=== PATIENT | male | born 1950 | race Caucasian/White ===

== ENCOUNTER 2019-01-27 14:22 | Emergency (ER) | payer MEDICARE, OTHER ==
[~2019-01-27] VITALS: Ht 180.3 cm; Wt 120.0 kg
[2019-01-27 14:25] VITALS: Ht 180.3 cm; Wt 120.0 kg
[2019-01-27] MEDS ORDERED: IBUPROFEN 200 MG TAB PO ONE (15:00)
[2019-01-27] MEDS ORDERED: HYDR-4011 PO (15:55)
--- NOTE | 2019-01-27 15:59 | ERD ---
ER Documentation Chief Complaint Chief Complaint RIGHT ANKLE TWIST, DENIES DIZZINESS, JUST A CLUMSY MOMENT HPI 68-year-old male presents with right ankle pain and swelling after twisting it missed stepping 2 days ago. He has restricted range of motion due to pain but no weakness or deficits. He has abrasions on the anterior tillman. Denies head injury, neck pain, additional injuries. ROS All systems reviewed and are negative except as per history of present illness. Medications Home Meds Active Scripts Hydrocodone/Acetaminophen (Forsyth 5-325 Tablet) 1 Each Tablet, 1 TAB PO Q6H PRN for PAIN, #12 TAB Prov:DAHLIA MERCADO MD 01/27/19 Physical Exam Vitals Vital Signs Date Temp Pulse Resp B/P (MAP) Pulse Ox O2 O2 Flow FiO2 Time Delivery Rate 01/27/19 98.0 90 18 148/85 97 14:25 (106) Physical Exam Const: No acute distress Head: Atraumatic Eyes: Normal Conjunctiva ENT: Normal External Ears, Nose and Mouth. Neck: Full range of motion. No meningismus. Resp: Clear to auscultation bilaterally Cardio: Regular rate and rhythm, no murmurs Abd: Soft, non tender, non distended. Normal bowel sounds Skin: No petechiae or rashes Back: No midline or flank tenderness Ext: No cyanosis, or edema Neur: Awake and alert Psych: Normal Mood and Affect Results 24 hrs Current Medications Medications Dose Sig/Alisson Start Time Status Last (Trade) Ordered Route PRN Stop Time Admin Dose Reason Admin Ibuprofen 400 mg ONCE ONCE 01/27/19 DC 01/27/19 (Motrin) PO 15:00 01/27/19 15:52 15:01 Procedures/MDM ROCEDURE: XR Ankle. CLINICAL INDICATION: pain injury TECHNIQUE: AP, oblique and lateral views of the right ankle are available for review COMPARISON: None available FINDINGS: There is an oblique fracture of the distal fibula extending superiorly from the level of the joint line. There is widening of the lateral and medial clear space on the ankle mortise view. A tiny avulsion fragment is also identified inferior to the medial malleolus. There is also posterior malleolar fracture. No joint subluxation identified. There is soft tissue swelling overlying the lateral malleolus and medial malleolus extending anteriorly. There is mild joint effusion. No radiopaque foreign body is identified. IMPRESSION: Acute oblique fracture of the distal fibula extending above the joint line, widening of the lateral and medial clear spaces, indicative of syndesmotic ligament and deltoid ligament injuries, and posterior malleolar fracture. Tiny avulsion fragment inferior to the medial malleolus. Fracture pattern combination is most consistent with a Silveira type B3. These findings were discussed with emergency department Dahlia Samaniego at 01/27/2019 3:42:54 PM. RPTAT: EE Physician Pawan Date Time Electronically viewed and signed by Physician Pawan on 01/27/2019 15:44 BP/ CC: DAHLIA MERCADO MD Patient was given ibuprofen for pain. Patient was placed in a right lower extremity walker boot and was neurovascular intact to the boot. Immobilization was spent deferred given patient likely fall risk. He is advised to try to maintain nonweightbearing status he was given crutches with crutch training. Patient was given a short course of [place] with recommendations for orthopedic follow-up to evaluate ligaments and white mortise seen on x-ray. He has no signs to suggest septic arthritis, ischemia, deficits. He was advised he may need authorization from primary doctor from orthopedist visit was given referrals nonetheless. The patient was stable with no new complaints during the ER course. Clinically, there is no current evidence to suggest meningitis, sepsis, acute abdomen, pneumonia, stroke, acute coronary syndrome, pulmonary embolism, aortic dissection or any other emergent condition appearing to require further evaluation or hospitalization. Patient counseled regarding my diagnostic impression and care plan. Prior to discharge all questions answered. Pt agrees with treatment plan and understands strict return precautions. Pt is instructed to follow up with primary care provider within 24- 48 hours. Precautionary instructions provided including instructions to return to the ER if not improving or for any worsening or changing symptoms or concerns. Disclaimer: Inadvertent spelling and grammatical errors are likely due to EHR/dictation software use and do not reflect on the overall quality of patient care. Also, please note that the electronic time recorded on this note does not necessarily reflect the actual time of the patient encounter. Departure Diagnosis: Primary Impression: Ankle fracture Encounter type: initial encounter Fracture type: closed Laterality: right Qualified Codes: S82.891A - Other fracture of right lower leg, initial encounter for closed fracture Condition: Stable Patient Instructions: Ankle Fracture (Distal Fibula), Closed Referrals: CYNTHIA LOREDO MD [facility] Hours: Mon-Fri 9:00 AM - 5:00 PM Additional Instructions: See orthopedist for follow-up. There are findings on x-ray of distal fibula fracture as well as possible ligament injury. May need authorization from primary doctor for orthopedist visit. Recheck for fevers, redness, new worsening symptoms. DAHLIA MERCADO MD Jan 27, 2019 15:59
[2019-01-27 16:04] VITALS: BP 133/75; PULSE 81; RESP 18
== END 2019-01-27 16:07 | disposition home or self-care (01) ==
LOC: FTE 14:22
DX: S82.831A Other fracture of upper and lower end of right fibula, initial encounter for closed fracture (principal); X50.1XXA Overexertion from prolonged static or awkward postures, initial encounter; Y92.9 Unspecified place or not applicable
CPT/HCPCS: 73590